=== PATIENT | female | born 1995 | race Caucasian/White ===

== ENCOUNTER 2022-08-17 17:39 | Inpatient (IN) | payer OTHER ==
[2022-08-17] VITALS (16 sets, daily range): BP systolic 121–164; BP diastolic 65–99; PULSE 71–122; TEMP 98.1–98.2
[~2022-08-17] VITALS: Ht 180.3 cm; Wt 104.1 kg
[~2022-08-17 17:39] MED LIST: PRENATAL MVI PO
--- NOTE | 2022-08-17 18:15 | NUR ---
G1 at 40 weeks arrives to unit ambulatory with complaint of contractions every 4 minutes. Pt was seen earlier in the day as a labor check and was sent home after not making cervical change and was dilated 1-2. Pt reports headache today that resolved with tylenol and has been feeling nauseous. Pt reports good movement, denies vaginal bleeding. Clean gown. Pt oriented to room, call light within reach, bed in low and locked position. US and toco explained and applied. Vitals obtained. Admission assessment started. Plan of care reviewed. SVE -/-3 per Amber Child RN
[2022-08-17] MEDS ORDERED: SLOW FE142 MG PO (18:38)
--- NOTE | 2022-08-17 18:50 | NUR ---
Category 1 FHR tracing obtained. Pt to birthing ball until next cervical exam.
--- NOTE | 2022-08-17 19:15 | NUR ---
Monitors back on. SVE /-3 per CLAIRE Cherry. Reviewed plan of care and offered additional hour for labor check, pt agreeable.
--- NOTE | 2022-08-17 20:48 | NUR ---
[id number] FHR not tracing on paper during this timeframe. Refer to electronic record.
--- NOTE | 2022-08-17 21:20 | NUR ---
SVE /-2, more mid position than previous exam per CLAIRE Cherry. See provider notification.
--- NOTE | 2022-08-17 21:25 | NUR ---
18G IV started in left hand after 2 attempts. Admission labs obtained off IV start. Lactated Ringers bolus infusing to gravity. 2134 Fe Snyder, APPRENTICE STYLIST notified for epidural placement, will come to bedside.
[2022-08-17 21:56] LABS: BASO % 0.3 % (0.0-2.0); EOS % 0.1 % (0.0-4.0); GRAN # 11.7 K/mm3 (1.4-6.5); GRAN % 84.5 % (42.2-75.2); HEMATOCRIT 40.5 % (37.0-47.0); HEMOGLOBIN 14.4 g/dl (12.5-16.0); LYMPH # 1.4 K/mm3 (1.2-3.4); LYMPH % 9.8 % (20.0-51.0); MEAN CELL VOLUME 92 fl (80.0-100.0); MEAN CORPUSCULAR HEMOGLOBIN 33 pg (27-31); MEAN CORPUSCULAR HGB CONC 36 g/dl (33.0-37.0); MEAN PLATELET VOLUME 11.6 fl (7.4-10.4); MONO # 0.7 K/mm3 (0.1-0.6); MONO % 4.8 % (1.7-9.3); PLATELET COUNT 230 K/mm3 (130-400); RED BLOOD COUNT 4.41 M/mm3 (4.10-5.30); REDCELL DISTRIBUTION WIDTH-CV 12.3 % (11.5-14.5)
--- NOTE | 2022-08-17 22:05 | NUR ---
2154 - Fe Snyder CRNA at bedside. Pt positioned to sitting on edge of bed. 2199 - Epidural risks, benefits, procedure explained to patient, verbalized understanding. 2203 - Single shot by DEL Traylor. Pt denies any adverse reactions. 2204 - Test dose by Evangelista Snyder CRNA. Pt denies any adverse reactions. 2209 - Pt repositioned to wedge left for comfort. Safety precautions reviewed. Bed in low and locked position, call light within reach. See anesthesia record.
--- NOTE | 2022-08-17 23:20 | NUR ---
Kiser catheter placed to dependent drainage at this time. Clear, yellow urine returned. Secured to leg with statlock. SVE /-2. Pt repositioned to wedge right for comfort, plan of care reviewed.
[2022-08-18] VITALS (80 sets, daily range): BP systolic 74–187; BP diastolic 55–105; PULSE 74–144; TEMP 97.6–99.5
--- NOTE | 2022-08-18 05:00 | NUR ---
Spontaneous rupture of amniotic fluid at this time. Clear and moderate amount. SVE 6-7/100/0.
--- NOTE | 2022-08-18 07:50 | NUR ---
[id number] DIFFICULTY TRACING CONTRACTION PATTERN DUE TO REPOSITIONING
[2022-08-18 15:14] LABS: HEMATOCRIT 38.2 % (37.0-47.0); HEMOGLOBIN 13.3 g/dl (12.5-16.0); MEAN CELL VOLUME 94 fl (80.0-100.0); MEAN CORPUSCULAR HEMOGLOBIN 33 pg (27-31); MEAN CORPUSCULAR HGB CONC 35 g/dl (33.0-37.0); MEAN PLATELET VOLUME 11.5 fl (7.4-10.4); PLATELET COUNT 229 K/mm3 (130-400); RED BLOOD COUNT 4.07 M/mm3 (4.10-5.30); REDCELL DISTRIBUTION WIDTH-CV 13.1 % (11.5-14.5)
[2022-08-18 15:29] LABS: ALBUMIN 2.5 gm/dL (3.5-5.0); BILIRUBIN,TOTAL 0.7 mg/dL (0.2-1.2); CALCIUM 8.2 mg/dL (8.4-10.2); CREATININE, serum 0.76 mg/dL (0.57-1.11); TOTAL PROTEIN 4.9 gm/dL (6.2-8.1)
--- NOTE | 2022-08-18 15:30 | NUR ---
1302 Geovanna WORKMAN RN, Fatuma BERNAL RN, DR SÁNCHEZ AT PT'S BEDSIDE. [address] SÁNCHEZ 1307 SPONTANEOUS VAGINAL DELIVERY OF VIABLE MALE . BULB SUCTIONED AND STIMULATED. TO MOTHER'S ABDOMEN. CORD CLAMPED BY DR. SÁNCHEZ. CUT BY FOB. INFANT TO MOTHER'S CHEST. DR SÁNCHEZ HAVING DIFFICULTY EXTRACTING PLACENTA. 1330 DR SÁNCHEZ [id number] WITH PT POSSIBILITY OF D/C. 1337 DR SÁNCHEZ MANUALLY TRYING TO EXTRACT PLACENTA. UTERINE INVERSION. 1340 PT TAKEN TO OR FOR REPLACEMENT OF UTERINE FUNDUS 1345 PROCEDURE IS STARTED BY DR SÁNCHEZ. 1355 150 CC INJECTED IN BAKRI BY Reynaldo DUMAS RN 1359 150 CC INJECTED INTO BAKRI BY Vinita DUMAS RN. 300CC TOTAL IN BAKRI 1405 MCKENZIE PLACED. 1425 PT TAKEN TO PACU
[2022-08-18 15:47] LABS: BAND 1 % (0-10); LYMPHOCYTE 7 % (20.0-51.0); NEUTROPHILS 88 % (42.0-75.2); PLATELET ESTIMATE NORMAL (NORMAL)
[2022-08-18 18:01] LABS: HEMOGLOBIN 12.1 g/dl (12.5-16.0); MEAN CELL VOLUME 94 fl (80.0-100.0); MEAN CORPUSCULAR HEMOGLOBIN 32 pg (27-31); MEAN CORPUSCULAR HGB CONC 34 g/dl (33.0-37.0); MEAN PLATELET VOLUME 10.9 fl (7.4-10.4); PLATELET COUNT 183 K/mm3 (130-400); RED BLOOD COUNT 3.78 M/mm3 (4.10-5.30); REDCELL DISTRIBUTION WIDTH-CV 13.4 % (11.5-14.5)
[2022-08-18 18:14] LABS: HEMATOCRIT 35.6 % (37.0-47.0)
[2022-08-18 18:26] LABS: BAND 7 % (0-10); LYMPHOCYTE 2 % (20.0-51.0); NEUTROPHILS 89 % (42.0-75.2); PLATELET ESTIMATE NORMAL (NORMAL)
[2022-08-19 03:10] VITALS: BP 118/65; PULSE 88; TEMP 98.1
[2022-08-19 07:00] VITALS: BP 122/78; PULSE 86; TEMP 98.2
[2022-08-19 07:50] LABS: BASO # 0.1 K/mm3 (0.0-0.2); BASO % 0.3 % (0.0-2.0); EOS # 0.1 K/mm3 (0.0-0.7); EOS % 0.5 % (0.0-4.0); GRAN # 11.6 K/mm3 (1.4-6.5); GRAN % 79.1 % (42.2-75.2); LYMPH % 13.6 % (20.0-51.0); MEAN CELL VOLUME 94 fl (80.0-100.0); MEAN CORPUSCULAR HGB CONC 34 g/dl (33.0-37.0); MEAN PLATELET VOLUME 11.2 fl (7.4-10.4); MONO # 0.9 K/mm3 (0.1-0.6); MONO % 6.1 % (1.7-9.3); PLATELET COUNT 124 K/mm3 (130-400); RED BLOOD COUNT 2.66 M/mm3 (4.10-5.30); REDCELL DISTRIBUTION WIDTH-CV 13.9 % (11.5-14.5)
[2022-08-19 07:51] LABS: HEMOGLOBIN 8.5 g/dl (12.5-16.0); MEAN CORPUSCULAR HEMOGLOBIN 32 pg (27-31)
--- NOTE | 2022-08-19 08:45 | NUR ---
0845: AT BEDSIDE. PT IN STABLE CONDIITON. NO BLOOD ON PAD. NO BLOOD IN BAKRI CONTAINER. MATERNAL VITAL SIGNS STABLE. BAKRI REMOVED PER AT THIS TIME. NO BLOOD FREE FLOW OR CLOTS NOTED FOLLOWING REMOVAL. PERINEUM SWOLLEN, BUT WNL. FUNDUS FIRM AT RIGHT OF THE UMBILICUS AT THIS TIME. MCKENZIE REMAINS IN PLACE UNTIL FURTHER MONITORING CONFIRMS BLEEDING IS STABILIZED. PT EATING BREAKFAST, DENIES NEEDS. PLAN FOLLOWING BREAKFAST IS TO GET PT UP AND INTO THE NURSERY TO VISIT . PT TO BEGIN PUMPING THIS MORNING WELL.
--- NOTE | 2022-08-19 09:30 | NUR ---
0930: PT REQUESTING TO GET UP AT THIS TIME. FULL SENSATION TO BLE. DENIES DIZZINESS OR WEAKNESS AT THIS TIME. VITAL SIGNS STABLE. NO LOCHIA FOLLOWING BAKRI REMOVAL ALMOST AN HOUR AGO. PT IS FULLY ALERT AND ORIENTED. ASSISTED TO EDGE OF BED, DENIES DIZZINESS. ASSISTED TO STANDING POSITION WITH THIS NURSE AND SUPPORT. DENIES WEAKNESS. INTO WHEELCHAIR AT THIS TIME AND TO RESTROOM FOR HYGIENE CARES. MCKENZIE REMAINS IN PLACE. PLAN TO REMOVE FOLLOWING THIS FIRST AMBULATION AND ACTIVITY TOLERANCE. CLEAN GOWN, PAD, ICE PACK, LIAM CARE AND UNDERWEAR PROVIDED. PT PROVIDES INDEPENDENT ORAL HYGIENE. ASSISTED TO NURSERY FOLLOWING RESTROOM TO VISIT . SKIN TO SKIN UPON THIS NURSE EXITING NURSERY. PT IN STABLE CONDITION AT THIS TIME.
--- NOTE | 2022-08-19 10:56 | NUR ---
PT PUMPING AT THIS TIME. THIS NURSE PROVIDING EDUCATION AND ASSISTANCE. PT DENIES FURTHER QUESTIONS OR CONCERNS.
--- NOTE | 2022-08-19 12:00 | NUR ---
20cc COLOSTRUM PUMPED AND SENT TO THE NURSERY REFRIGERATED AT THIS TIME.
[2022-08-19 12:30] VITALS: BP 141/85; PULSE 98; TEMP 97.8
--- NOTE | 2022-08-19 12:30 | NUR ---
PT RESTING IN BED. REQUESTING TO NAP. HESITANT TO REMOVE MCKENZIE, STATES "I JUST KEEP THINKING I'M GOING TO START BLEEDING AGAIN." PT EDUCATED THAT IT IS SAFE TO REMOVE MCKENZIE FROM A NURSING STANDPOINT. PT REQUESTING TO REMOVE MCKENZIE FOLLOWING NAP. THIS NURSE AGREEABLE TO PLAN OF CARE. ICE PACK CHANGED AT THIS TIME. SCANT LOCHIA ON PAD. FUNDUS REMAINS FIRM. VITAL SIGNS STABLE. PT ENCOURAGED TO DRINK WATER AND REST.
[2022-08-19 12:32] LABS: PATHOLOGY DIFF REVIEW OK
--- NOTE | 2022-08-19 15:30 | NUR ---
PT COMPLETED PUMPING, THIS NURSE REMOVES MCKENZIE CATHETER AT THIS TIME. EMPTIES 1100CC OF CLEAR YELLOW URINE. VITAL SIGNS STABLE. LOCHIA SCANT. PERINEUM LESS SWOLLEN THAN THIS AM. LIAM CARE PROVIDED. NEW PAD AND ICE PACK APPLIED. PT ASSISTED INTO NURSERY TO VISIT . TRANSFERRED TO ROOM 210 FOLLOWING THIS ENCOUNTER. STABLE CONDITION AT THIS TIME.
[2022-08-19 16:33] VITALS: BP 126/74; PULSE 101; TEMP 98
[2022-08-19 21:45] VITALS: BP 112/58; PULSE 70; TEMP 98.7
[2022-08-20 07:00] LABS: BASO % 0.4 % (0.0-2.0); EOS # 0.1 K/mm3 (0.0-0.7); EOS % 1.2 % (0.0-4.0); GRAN # 8.6 K/mm3 (1.4-6.5); GRAN % 76.7 % (42.2-75.2); LYMPH # 1.7 K/mm3 (1.2-3.4); LYMPH % 15.2 % (20.0-51.0); MEAN CELL VOLUME 96 fl (80.0-100.0); MEAN CORPUSCULAR HGB CONC 34 g/dl (33.0-37.0); MEAN PLATELET VOLUME 11.1 fl (7.4-10.4); MONO # 0.6 K/mm3 (0.1-0.6); MONO % 5.7 % (1.7-9.3); PLATELET COUNT 133 K/mm3 (130-400); RED BLOOD COUNT 2.53 M/mm3 (4.10-5.30); REDCELL DISTRIBUTION WIDTH-CV 13.8 % (11.5-14.5)
[2022-08-20 07:02] LABS: HEMATOCRIT 24.4 % (37.0-47.0); HEMOGLOBIN 8.2 g/dl (12.5-16.0); MEAN CORPUSCULAR HEMOGLOBIN 32 pg (27-31)
[2022-08-20 07:58] VITALS: BP 124/77; PULSE 89; TEMP 97.8
[2022-08-20] MEDS ORDERED: MOTRIN 800800 MG/TAB PO (08:58)
--- NOTE | 2022-08-20 09:09 | NUR ---
Initial visit; Parents thanked Wood Finisher Apprentice for offering congratulations and God's blessings for the of their son. Wood Finisher Apprentice thanked family for choosing [facility].
== END 2022-08-20 14:00 | disposition home or self-care (01) | DRG 768 ==
LOC: LDRO 17:39 → LDR 20:35 → OB 20:35
PROVIDERS: Obstetrics & Gynecology; ADMIT Obstetrics & Gynecology
PROC: 10E0XZZ Delivery of Products of Conception, External Approach (ICD-10-PCS; principal; 2022-08-18)
PROC: 0W3R0ZZ Control Bleeding in Genitourinary Tract, Open Approach (ICD-10-PCS; 2022-08-18)
PROC: 10D17Z9 Manual Extraction of Products of Conception, Retained, Via Natural or Artificial Opening (ICD-10-PCS; 2022-08-18)
PROC: 0W8NXZZ Division of Female Perineum, External Approach (ICD-10-PCS; 2022-08-18)
PROC: 30233N1 Transfusion of Nonautologous Red Blood Cells into Peripheral Vein, Percutaneous Approach (ICD-10-PCS; 2022-08-18)
DX: O99.02 Anemia complicating childbirth (principal); Z37.0 Single live birth; O72.0 Third-stage hemorrhage; O71.2 Postpartum inversion of uterus; D64.9 Anemia, unspecified; O62.0 Primary inadequate contractions; O99.824 Streptococcus B carrier state complicating childbirth; O36.63X0 Maternal care for excessive fetal growth, third trimester, not applicable or unspecified; Z3A.40 40 weeks gestation of pregnancy
CPT/HCPCS: 86644; J0690; J2250; J2405; J2590; J7120; P9016; P9035

== ENCOUNTER 2024-04-19 08:34 | Inpatient (IN) | payer OTHER ==
[~2024-04-19] VITALS: Ht 182.9 cm; Wt 101.8 kg
[~2024-04-19 08:34] MED LIST changes: +MOTRIN 800800 MG/TAB PO; +SLOW FE142 MG PO
[2024-04-27] VITALS (25 sets, daily range): BP systolic 100–138; BP diastolic 58–91; PULSE 64–100; TEMP 97.9–98
--- NOTE | 2024-04-27 04:30 | NUR ---
ambulatory to unit, accompanied by spouse for labor assessment. Oriented to room, monitor, plan of care. Pt reports contractions getting stronger since 229. SVE as noted. Pt ddep breathing with ctx, requests epidural.
[2024-04-27] MEDS ORDERED: ceFAZolin 2 G in Water For Injection,Sterile 20 ML IV ONE (05:00)
[2024-04-27] MEDS ORDERED: LR 1,000 ML IV SCH (05:00)
[2024-04-27 05:14] LABS: BASO % 0.3 % (0.0-2.0); EOS # 0.1 K/mm3 (0.0-0.7); EOS % 0.8 % (0.0-4.0); GRAN # 8.5 K/mm3 (1.4-6.5); GRAN % 79.7 % (42.2-75.2); HEMATOCRIT 38.3 % (37.0-47.0); HEMOGLOBIN 13.2 g/dl (12.5-16.0); LYMPH # 1.4 K/mm3 (1.2-3.4); LYMPH % 13.3 % (20.0-51.0); MEAN CELL VOLUME 93 fl (80.0-100.0); MEAN CORPUSCULAR HEMOGLOBIN 32 pg (27-31); MEAN CORPUSCULAR HGB CONC 35 g/dl (33.0-37.0); MEAN PLATELET VOLUME 10.4 fl (7.4-10.4); MONO # 0.6 K/mm3 (0.1-0.6); MONO % 5.4 % (1.7-9.3); PLATELET COUNT 187 K/mm3 (130-400); REDCELL DISTRIBUTION WIDTH-CV 13.1 % (11.5-14.5)
[2024-04-27] MEDS ORDERED: ROPivacaine PF 0.2% 200 ML IV ONE (05:35)
--- NOTE | 2024-04-27 05:40 | NUR ---
LIONELAWILDA ASSEMBLER METAL FURNITURE into room for epidural. Pt moved to sit on edge of bed, monitor tracing maternal heart rate. See anesthesia record.
[2024-04-27] MEDS ORDERED: Ondansetron 4 MG/2 ML VIAL IV PRN (06:00)
[2024-04-27] MEDS ORDERED: diphenhydrAMINE 25 MG CAP PO PRN (06:00)
[2024-04-27] MEDS ORDERED: Naloxone 0.4 MG/ML VIAL IV PRN ×2 (06:00→12:15)
[2024-04-27] MEDS ORDERED: ePHEDrine 50 MG/10 ML VIAL IV PRN (06:00)
[2024-04-27] MEDS ORDERED: diphenhydrAMINE 50 MG/ML 1 ML VIAL IV PRN (06:00)
--- NOTE | 2024-04-27 07:28 | NUR ---
RN BEDSIDE DISCUSSING POC WITH PT AND SPOUSE, PT VERBALIZES UNDERSTANDING AND HAS NO QUESTIONS AT THIS TIME.
--- NOTE | 2024-04-27 07:40 | NUR ---
0700 RUPALI SHEPHEDR UPDATED ON PT ARRIVAL AROUND 0430 LABORING, EPIDURAL PLACEMENT, RECENT SVE, FHTS REACTIVE, CTX PATTERN, PT COMFORTABLE. STATES SHE WILL BE BEDSIDE AROUND 0830 UNLESS NEEDED BEFORE.
--- NOTE | 2024-04-27 08:52 | NUR ---
0815 MD BEDSIDE, SVE AND AROM PERFORMED. PT TOLERATED WELL
--- NOTE | 2024-04-27 09:40 | NUR ---
0980 RUPALI SHEPHERD UPDATED ON RECENT SVE, FHTS, CTX PATTERN. ORDERS TO RECHECK IN ONE HOUR AND UPDATE PROVIDER. CLAIRE ADKINS
--- NOTE | 2024-04-27 10:39 | NUR ---
1032 RUPALI SHEPHERD UPDATED ON RECENT SVE, FHTS, CTX PATTERN, PT NOT FEELING ANY PRESSURE AT THIS TIME. STATES TO CALL WHEN READY FOR DELIVERY.
--- NOTE | 2024-04-27 11:42 | NUR ---
RUPALI SHEPHERD UPDATED ON SVE COMPLETE, FHTS, CTX PATTERN. ORDERS TO DISCONTINUE MCKENZIE AND START PUSHING. STATES SHE IS EN ROUTE TO HOSPITAL. RN RBVO.
--- NOTE | 2024-04-27 11:44 | NUR ---
1115 RUPALI SHEPHERD AND DELIVERY TEAM BEDSIDE.
--- NOTE | 2024-04-27 11:46 | NUR ---
1127 SPONTANEOUS VAGINAL DELIVERY OF VIABLE MALE .
[2024-04-27] MEDS ORDERED: LR & Oxytocin 500 ML IV SCH (11:48)
[2024-04-27] MEDS ORDERED: Magnes Hydrox (MOM) 80 MG/ML 30 ML CUP PO PRN (12:15)
[2024-04-27] MEDS ORDERED: Loratadine 10 MG TAB PO PRN (12:15)
[2024-04-27] MEDS ORDERED: Acetaminophen 500 MG TAB PO SCH (12:15)
[2024-04-27] MEDS ORDERED: Phenylephrine/Mineral Oil/Petrolatum 57 GM TUBE RC PRN (12:15)
[2024-04-27] MEDS ORDERED: Witch Hazel 50% Pads Bulk TUB TP PRN (12:15)
[2024-04-27] MEDS ORDERED: Measles/Mumps/Rubella Virus Vaccine Live w Diluent 0.5 ML VIAL SQ SCH (12:15)
[2024-04-27] MEDS ORDERED: Mag/Al Hydrox/Simeth Susp 30 ML CUP PO PRN (12:15)
[2024-04-27] MEDS ORDERED: Ibuprofen 800 MG TAB PO SCH (12:15)
[2024-04-27] MEDS ORDERED: ceFAZolin 1 G in Water For Injection,Sterile 10 ML IV SCH (12:52)
[2024-04-27] MEDS ORDERED: Sennosides/Docusate 8.6-50 MG TAB PO SCH (17:00)
[2024-04-27] MEDS ORDERED: traZODone 50 MG TAB PO PRN (21:00)
[2024-04-28 02:59] VITALS: BP 121/70; PULSE 73; TEMP 97.9
[2024-04-28 07:26] VITALS: BP 117/81; PULSE 81; TEMP 98
--- NOTE | 2024-04-28 08:01 | NUR ---
0700 RN DISCUSSES POC WITH PT AND SPOUSE. PT VERBALIZES UNDERSTANDING AND HAS NO QUESTIONS AT THIS TIME.
[2024-04-28] MEDS ORDERED: IBU800 M1 PO (10:10)
--- NOTE | 2024-04-28 12:51 | NUR ---
PT GIVEN BOTH WRITTEN AND VERBAL DISCHARGE INSTRUCTIONS. PT EDUCATED ON SIGNS/SYMPTOMS TO LOOK OUT FOR. PT VERBALIZES UNDERSTANDING AND HAS NO QUESTIONS AT THIS TIME.
== END 2024-04-28 15:10 | disposition home or self-care (01) | DRG 806 ==
LOC: OB 08:34 → LDR 04-27 04:20 → OB 04-27 11:49 → LDR 04-27 12:02 → OB 04-27 15:45
PROVIDERS: Obstetrics & Gynecology; ADMIT Obstetrics & Gynecology
PROC: 10E0XZZ Delivery of Products of Conception, External Approach (ICD-10-PCS; principal; 2024-04-27)
PROC: 0KQM0ZZ Repair Perineum Muscle, Open Approach (ICD-10-PCS; 2024-04-27)
PROC: 0W8NXZZ Division of Female Perineum, External Approach (ICD-10-PCS; 2024-04-27)
DX: O48.0 Post-term pregnancy (principal); O63.9 Long labor, unspecified; Z37.0 Single live birth; Z3A.40 40 weeks gestation of pregnancy; O36.63X0 Maternal care for excessive fetal growth, third trimester, not applicable or unspecified; O99.824 Streptococcus B carrier state complicating childbirth; O70.1 Second degree perineal laceration during delivery; O69.81X0 Labor and delivery complicated by cord around neck, without compression, not applicable or unspecified; O76 Abnormality in fetal heart rate and rhythm complicating labor and delivery; Z88.0 Allergy status to penicillin
CPT/HCPCS: J0690; J2405; J2590; J2795; J7120